=== PATIENT | male | born 1980 | race Two or more races ===

== ENCOUNTER 2018-01-09 03:47 | Emergency (ER) | payer OTHER ==
[~2018-01-09] VITALS: Ht 170.2 cm; Wt 81.6 kg
[2018-01-09] MEDS ORDERED: NKM (03:51)
[2018-01-09 03:55] VITALS: BP 144/86
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
[2018-01-09 05:38] VITALS: BP 101/61
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
== END 2018-01-09 05:43 ==
LOC: EDBD 03:47 → EMR 03:55
DX: Z02.89 Encounter for other administrative examinations (principal); Z88.0 Allergy status to penicillin; V87.7XXA Person injured in collision between other specified motor vehicles (traffic), initial encounter
CPT/HCPCS: 72052; 99283